=== PATIENT | male | born 1985 | race Native Hawaiian/Other Pacific Islander ===

== ENCOUNTER 2018-07-23 12:35 | Outpatient (CLI) | payer BC ==
[~2018-07-23 12:35] MED LIST: CETI10TA PO
[2018-07-24] MEDS ORDERED: MULT VITAMI1 PO (00:49)
== END 2018-07-23 22:13 | disposition home or self-care (01) ==
LOC: RAD 12:35
DX: J09.X2 Influenza due to identified novel influenza A virus with other respiratory manifestations (principal)

== ENCOUNTER 2018-07-23 16:45 | Observation (INO) | payer BC ==
[~2018-07-23] VITALS: Ht 175.3 cm; Wt 79.1 kg
[2018-07-23 23:11] LABS: PLATELET COUNT 476 K/uL (142-355)
[2018-07-23 23:58] LABS: POTASSIUM 4.6 mmol/L (3.6-5.2)
[2018-07-24] MEDS ORDERED: MULT VITAMI1 PO (00:49)
[2018-07-24 01:26] VITALS: BP 132/72; TEMP 98.1; Ht 175.3 cm; Wt 79.1 kg
[2018-07-24 04:00] VITALS: BP 139/72; TEMP 98.1
[2018-07-24 08:00] VITALS: BP 116/96; TEMP 98.5
[2018-07-24 12:00] VITALS: BP 121/71; TEMP 98
[2018-07-24 16:03] VITALS: BP 100/53
[2018-07-24 20:05] VITALS: BP 124/75; TEMP 98.8
[2018-07-25] VITALS: BP 116/57; TEMP 98.8
[2018-07-25 04:14] VITALS: BP 111/63; TEMP 98.8
[2018-07-25 05:25] LABS: PLATELET COUNT 387 K/uL (142-355)
[2018-07-25 05:38] LABS: POTASSIUM 4.4 mmol/L (3.6-5.2)
[2018-07-25 08:00] VITALS: BP 132/77; TEMP 98.3
== END 2018-07-25 12:36 | disposition home or self-care (01) ==
LOC: MED/SURG 16:45
PROVIDERS: ADMIT Family Medicine
DX: J18.8 Other pneumonia, unspecified organism (principal); R05 Cough; R06.09 Other forms of dyspnea
CPT/HCPCS: 36415; 36591; 80053; 85027; 87040; 87070; 87205; 87206; 87899; 90471; 93005; 94640; 94664; 94760; 96365; 96367; 99220; G0378; G0379; J2185; J3490

== ENCOUNTER 2018-07-31 16:55 | Observation (INO) | payer BC ==
[~2018-07-31] VITALS: Ht 175.3 cm; Wt 77.7 kg
[~2018-07-31 16:55] MED LIST changes: +MULT VITAMI1 PO
[2018-07-31 17:40] LABS: PLATELET COUNT 381 K/uL (142-355)
[2018-07-31 17:47] VITALS: BP 144/87; TEMP 98; Ht 175.3 cm; Wt 77.7 kg
[2018-07-31 18:02] LABS: POTASSIUM 3.9 mmol/L (3.6-5.2); SODIUM 137 mmol/L (136-145)
[2018-07-31 19:49] VITALS: BP 133/88; TEMP 98.1
== END 2018-07-31 21:05 | disposition short-term general hospital (02) ==
LOC: ED 16:55 → MED/SURG 16:57
PROVIDERS: ADMIT Family Medicine
DX: J18.1 Lobar pneumonia, unspecified organism (principal); R41.82 Altered mental status, unspecified; I48.91 Unspecified atrial fibrillation; E86.0 Dehydration
CPT/HCPCS: 80053; 82308; 82550; 83735; 84100; 84443; 84484; 85027; 85610; 87040; 93005; 99220; G0378; J2543

== ENCOUNTER 2019-01-28 17:11 | Outpatient (CLI) | payer OTHER | END 2019-01-28 23:41 | disposition home or self-care (01) | LOC: RAD 17:11 | DX: R25.2 Cramp and spasm (principal) ==

== ENCOUNTER 2021-04-25 11:18 | Outpatient (CLI) | payer BC ==
[2021-04-25 11:54] LABS: PLATELET COUNT 293 K/uL (142-355)
[2021-04-25 12:50] LABS: POTASSIUM 4.2 mmol/L (3.6-5.2); SODIUM 137 mmol/L (136-145)
== END 2021-04-25 19:37 | disposition home or self-care (01) ==
LOC: LABW 11:18
PROVIDERS: ATTEND Nurse Practitioner Family
DX: S29.011A Strain of muscle and tendon of front wall of thorax, initial encounter (principal); Y92.9 Unspecified place or not applicable
CPT/HCPCS: 36415; 80053; 82550; 82553; 83735; 84484; 85027

== ENCOUNTER 2021-12-10 15:44 | Emergency (ER) | payer OTHER ==
[~2021-12-10] VITALS: Ht 175.3 cm; Wt 77.6 kg
[2021-12-10 15:45] VITALS: BP 140/83; TEMP 97
== END 2021-12-10 17:00 | disposition home or self-care (01) ==
LOC: ED 15:44
PROC: 0HQGXZZ Repair Left Hand Skin, External Approach (ICD-10-PCS; principal; 2021-12-10)
DX: S61.215A Laceration without foreign body of left ring finger without damage to nail, initial encounter (principal); W29.3XXA Contact with powered garden and outdoor hand tools and machinery, initial encounter; Y92.89 Other specified places as the place of occurrence of the external cause
CPT/HCPCS: 99282